=== PATIENT | male | born 1995 | race Two or more races ===

== ENCOUNTER 2020-10-26 01:32 | Emergency (ER) | payer MEDICAID ==
[~2020-10-26] VITALS: Ht 182.9 cm; Wt 127.3 kg
[2020-10-26 01:34] VITALS: BP 128/62
--- NOTE | 2020-10-26 03:13 | NUR ---
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
[2020-10-26] MEDS ORDERED: ACETAMINOPHEN 500 MG TABLET PO ONE (04:00)
[2020-10-26] MEDS ORDERED: ACETAMINOPHEN 500 MG TABLET ONE (04:12)
[2020-10-26] MEDS ORDERED: KETOROLAC 30 MG/1 ML ONE (04:12)
[2020-10-26] MEDS ORDERED: KETOROLAC 30 MG/1 ML IM ONE (04:30)
--- NOTE | 2020-10-26 04:30 | NUR ---
Patient/Caregiver given discharge instructions and they have confirmed that they understand the instructions. Patient ambulatory with steady gait. NAD, all questions answered appropriately, denies additional needs at this time. No personal belongings left in room after discharge.
== END 2020-10-26 04:40 | disposition home or self-care (01) ==
LOC: ED 04:34
DX: H66.001 Acute suppurative otitis media without spontaneous rupture of ear drum, right ear (principal); H60.501 Unspecified acute noninfective otitis externa, right ear; R50.9 Fever, unspecified; I10 Essential (primary) hypertension; E11.9 Type 2 diabetes mellitus without complications
CPT/HCPCS: 96372; 99283; J1885